=== PATIENT | female | born 1980 | race American Indian/Alaskan Native ===

== ENCOUNTER 2020-01-29 19:20 | Emergency (ER) | payer MEDICAID ==
[2020-01-29 19:59] LABS: Basophils # (Auto) 0.1 K/mm3 (0.0-0.1); Basophils % (Auto) 0.7 % (0.0-1.8); Eosinophils # (Auto) 0.2 K/mm3 (0.0-0.4); Eosinophils % (Auto) 1.7 % (0.0-4.3); Hematocrit 39.6 % (30.3-42.9); Hemoglobin 13.4 gm/dl (10.1-14.3); Lymphocytes # (Auto) 2.4 K/mm3 (1.2-5.4); Lymphocytes % (Auto) 20.7 % (13.4-35.0); Mean Corpuscular HGB Conc 34 % (30-34); Mean Corpuscular Volume 90 fl (79-97); Monocytes # (Auto) 0.7 K/mm3 (0.0-0.8); Monocytes % (Auto) 5.9 % (0.0-7.3); Platelet Count 323 K/mm3 (140-440); Red Blood Count 4.42 M/mm3 (3.65-5.03); Red Cell Distribution Width 15.3 % (13.2-15.2)
[2020-01-29] MEDS ORDERED: LORazepam 1 MG TAB PO ONE (20:00)
[2020-01-29] MEDS ORDERED: BACITRACIN ZINC OINT 28.4 GM TP ONE (20:01)
[2020-01-29] MEDS ORDERED: diphenhydrAMINE 50 MG/ML VIAL IM PRN (20:03)
[2020-01-29] MEDS ORDERED: HALOPERIDOL LACTATE 5 MG/1 ML INJ IM PRN (20:03)
--- NOTE | 2020-01-29 20:04 | Emergency Department Report ---
HPI - General Chief Complaint: Psych Time Seen by Provider: 01/29/20 19:53 - HPI HPI: Room 13 The patient is a 39-year-old female present with a chief complaint of suicidal ideation. Patient states she "was not feeling like" herself. Patient states fo r the past 2 days she is felt suicidal. Patient states she is been without her psychiatric meds x1 week. Patient denies any active attempts at harming herself but states her plan was to go to [place] and jump in the ocean and so went back to [place]. The patient states she had a chronic scar on her face from childhood that she attempted to scratch off 2 days ago using her fingernail. Patient has scabs to her lower face ED Past Medical Hx - Past Medical History Hx Psychiatric Treatment: Yes (depression) - Surgical History Additional Surgical History: c sect - Family History Family history: no significant - Social History Smoking Status: Current Every Day Smoker (1/3 pack/day) Substance Use Type: Marijuana ED Review of Systems ROS: Stated complaint: MH EVALUATION Other details as noted in HPI Constitutional: no symptoms reported Respiratory: no symptoms reported Endocrine: no symptoms reported Psychiatric: suicidal thoughts, other (Hyperverbal) Physical Exam - Physical Exam Vital Signs: Vital Signs 01/29/20 19:38 Temperature 98.5 F Pulse Rate 99 H Respiratory 18 Rate Blood Pressure 131/72 [Left] O2 Sat by Pulse 96 Oximetry Physical Exam: GENERAL: The patient is well-developed well-nourished female sitting on chair appearing hyperverbal. [] HEENT: Normocephalic. Atraumatic. Evidence of recent scratch domínguez to both sides of her chin with scab formation. No bleeding. Patient has moist mucous membranes. NECK: Supple. Trachea midline CHEST/LUNGS: Clear to auscultation. There is no respiratory distress noted. HEART/CARDIOVASCULAR: Regular. There is no tachycardia. There is no gallop rub or murmur. ABDOMEN: Abdomen is soft, nontender. Patient has normal bowel sounds. There is no abdominal distention. SKIN: There is no rash. There is no edema. There is no diaphoresis. NEURO: The patient is awake, alert, and oriented but hyperverbal. The patient is cooperative. The patient has no focal neurologic deficits. The patient has pressured speech MUSCULOSKELETAL: There is no evidence of acute injury. ED Course Vital Signs 01/29/20 19:38 Temperature 98.5 F Pulse Rate 99 H Respiratory 18 Rate Blood Pressure 131/72 [Left] O2 Sat by Pulse 96 Oximetry ED Medical Decision Making - Lab Data Result diagrams: 01/29/20 19:46 01/29/20 19:46 Laboratory Tests 01/29/20 01/29/20 01/29/20 19:46 19:46 19:46 WBC RBC Hgb Hct MCV MCH MCHC RDW Plt Count Lymph % (Auto) [place] % (Auto) Eos % (Auto) Baso % (Auto) Lymph # (Auto) [place] # (Auto) Eos # (Auto) Baso # (Auto) Seg Neutrophils % Seg Neutrophils # Sodium 138 Potassium 4.4 Chloride 105.7 Carbon Dioxide 24 Anion Gap 13 BUN 9 Creatinine 0.6 Estimated GFR > 60 BUN/Creatinine Ratio 15 Glucose 236 H Calcium 9.2 Urine Color Urine Turbidity Urine pH Ur Specific [place] Urine Protein Urine Glucose (UA) Urine Ketones Urine Blood Urine Nitrite Urine Bilirubin Urine Urobilinogen Ur Leukocyte Esterase Urine WBC (Auto) Urine RBC (Auto) U Epithel Cells (Auto) Urine Bacteria (Auto) Urine Mucus Urine Yeast (Budding) Salicylates < 0.3 L Urine Opiates Screen Urine Methadone Screen Acetaminophen 5.0 L Ur Barbiturates Screen Ur Phencyclidine Scrn Ur Amphetamines Screen U Benzodiazepines Scrn Urine Cocaine Screen U Marijuana (THC) Screen Drugs of Abuse Note Plasma/Serum Alcohol 01/29/20 01/29/20 01/29/20 19:46 19:46 Unknown WBC 11.6 H RBC 4.42 Hgb 13.4 Hct 39.6 MCV 90 MCH 30 MCHC 34 RDW 15.3 H Plt Count 323 Lymph % (Auto) 20.7 [place] % (Auto) 5.9 Eos % (Auto) 1.7 Baso % (Auto) 0.7 Lymph # (Auto) 2.4 [place] # (Auto) 0.7 Eos # (Auto) 0.2 Baso # (Auto) 0.1 Seg Neutrophils % 71.0 H Seg Neutrophils # 8.2 H Sodium Potassium Chloride Carbon Dioxide Anion Gap BUN Creatinine Estimated GFR BUN/Creatinine Ratio Glucose Calcium Urine Color Susana Urine Turbidity Slightly-cloudy Urine pH 6.0 Ur Specific [place] 1.029 Urine Protein 100 mg/dl Urine Glucose (UA) Neg Urine Ketones Tr Urine Blood Neg Urine Nitrite Neg Urine Bilirubin Neg Urine Urobilinogen 4.0 Ur Leukocyte Esterase Mod Urine WBC (Auto) 5.0 Urine RBC (Auto) 11.0 U Epithel Cells (Auto) 36.0 H Urine Bacteria (Auto) 1+ Urine Mucus 3+ Urine Yeast (Budding) Few Salicylates Urine Opiates Screen Urine Methadone Screen Acetaminophen Ur Barbiturates Screen Ur Phencyclidine Scrn Ur Amphetamines Screen U Benzodiazepines Scrn Urine Cocaine Screen U Marijuana (THC) Screen Drugs of Abuse Note Plasma/Serum Alcohol < 0.01 01/29/20 Unknown WBC RBC Hgb Hct MCV MCH MCHC RDW Plt Count Lymph % (Auto) [place] % (Auto) Eos % (Auto) Baso % (Auto) Lymph # (Auto) [place] # (Auto) Eos # (Auto) Baso # (Auto) Seg Neutrophils % Seg Neutrophils # Sodium Potassium Chloride Carbon Dioxide Anion Gap BUN Creatinine Estimated GFR BUN/Creatinine Ratio Glucose Calcium Urine Color Urine Turbidity Urine pH Ur Specific [place] Urine Protein Urine Glucose (UA) Urine Ketones Urine Blood Urine Nitrite Urine Bilirubin Urine Urobilinogen Ur Leukocyte Esterase Urine WBC (Auto) Urine RBC (Auto) U Epithel Cells (Auto) Urine Bacteria (Auto) Urine Mucus Urine Yeast (Budding) Salicylates Urine Opiates Screen Presumptive negative Urine Methadone Screen Presumptive negative Acetaminophen Ur Barbiturates Screen Presumptive negative Ur Phencyclidine Scrn Presumptive negative Ur Amphetamines Screen Presumptive negative U Benzodiazepines Scrn Presumptive negative Urine Cocaine Screen Presumptive positive U Marijuana (THC) Screen Presumptive positive Drugs of Abuse Note Disclamer Plasma/Serum Alcohol - Differential Diagnosis Suicidal ideation, Critical care attestation.: If time is entered above; I have spent that time in minutes in the direct care of this critically ill patient, excluding procedure time. ED Disposition Clinical Impression: Suicidal ideation, Polysubstance abuse Disposition: DC/TX-65 PSY HOSP/PSY UNIT Is pt being admited?: No Does the pt Need Aspirin: No Condition: Stable Time of Disposition: 21:27 (Awaiting acceptance)
[2020-01-29] MEDS: LORazepam 2 MG/ML VIAL IM PRN (20:10)
[2020-01-29 20:21] LABS: Blood Urea Nitrogen 9 mg/dL (7-17); Calcium 9.2 mg/dL (8.4-10.2); Hemolysis Index 10
[2020-01-29 20:30] LABS: BUN/Creatinine Ratio 15
[2020-01-29 20:59] LABS: Bacteria,Urine 1+ /HPF (Negative); Bilirubin,Urine NEG (Negative); Blood,Urine NEG (Negative); Color,Urine Amber (Yellow); Mucus,Urine 3+ /HPF
[2020-01-29 21:06] LABS: Amphetamine Screen,Urine PRESUMPTIVE NEGATIVE; Benzodiazepines Screen,Urine PRESUMPTIVE NEGATIVE; Cannabinoid Screen,Urine PRESUMPTIVE POSITIVE; Cocaine Screen,Urine PRESUMPTIVE POSITIVE; Methadone Screen,Urine PRESUMPTIVE NEGATIVE; Opiate Screen,Urine PRESUMPTIVE NEGATIVE
--- NOTE | 2020-01-30 09:19 | Consultation ---
History of Present Illness - Reason for Consult Consult date: 01/30/20 Reason for consult: MHE Requesting physician: BELLE NICOLE - History of Present Psychiatric Illness Per ED Provider: patient is a 39-year-old female present with a chief complaint of suicidal ideation. Patient states she "was not feeling like" herself. Patient states for the past 2 days she is felt suicidal. Patient states she is been without her psychiatric meds x1 week. Patient denies any active attempts at harming herself but states her plan was to go to [place] and jump in the ocean and so went back to [place]. The patient states she had a chronic scar on her face from childhood that she attempted to scratch off 2 days ago using her fingernail. Patient has scabs to her lower face PER MHA: Pt. is a 39 y/o female who presents to ED for a MHE. Per records, pts Chief complaint is suicidal ideation with plan to go to [place] and jump in the ocean and go back to [place]. Pt reports that she has been out of her psychiatric medications for one week. Pt. presents with a chronic scar on her face and scabs to her lower face from childhood that she attempted to scratch off 2 days ago using her fingernail. Satellite Manager observed that the scar has been picked at. During current ax, pt presents with irritable mood, incongruent affect, and tangential thinking. She presents as being hyperverbal w/ pressured speech. She continued to have loud outburst and was difficult to redirect. Demanding sandwiches, medications, etc. She continued to pace the hallway and fidget during encounter. Reports auditory hallucinations since I was born. Voices tell pt. to pick at scar on face. Unable to elaborate additionally on voices. According to pt, her psych hx consists of schizophrenia and depression. Denies current psych provider or treatment in [place]. Pt has received inpatient psychiatric treatment in [place]. Unable to report reason for admission or time. Pt. reports being from [place] and moving to [place] one month ago to hang out and sight see. Denies family in [place]. Pt. is hyper focused on seeing a new social work therapist to retrieve a new VISA card. Pt receives Social Security Disability. Amount unknown at this time. Pt. is paranoid and unwilling to provide information related to previous whereabouts and income. Pt has a [facility] payee. Payee paid housing up until Wednesday. Later pt. indicated that she was living a fdc and no longer want to live in an apartment. (name and number unknown) PSYCH HPI Patient is a 39 year old single without children, unemployed on disability 39 year old Female who resides in a fdc with past psychiatric history of MDD, and Schziophrenia and no significant past medical history who presents to the ED with complaints of SI. Patient reports she had called 911 herself because she didnt like where was at, had lost her visa master card where her money gets deposited into and needed help to see social work therapist here and to get back to [facility]. Patient says her main issue is social, is not suicidal and would like to see a social work therapist. Patient says she also does not like her current home and does not wish to go back there and does not know her psych medications and she is on Latuda too. PAST PSYCHIATRIC HISTORY Diagnoses: MDD, and Schziophrenia Suicide attempts or Self-harm behavior: Yes Prior psychiatric hospitalizations: Yes Substance Abuse history: Marianela Previous psychiatric medications tried: Yes Outpatient treatment: non compliant PAST MEDICAL HISTORY: unable to recall Family Psychiatric History: None reported or documented SOCIAL HISTORY Marital Status: Single Living Arrangements:FDC Employment Status: Disabled mentally Access to guns/weapons: none Education: College degree per patient History of Abuse: none reported Legal History: REVIEW OF SYSTEMS Constitutional: Negative for weight loss ENT: Negative for stridor Respiratory: Negative for cough or hemoptysis All other systems reviewed and are negative MENTAL STATUS EXAMINATION General Appearance and Behavior: Age appropriate, fair hygiene, wearing appropriate clothes, lying in bed, good eye contact, cooperative politewith questioning. Cooperation: Participating/engaged Psychomotor Behavior: unremarkable and within normal limits Mood: just fine Affect and affective range: congruent with mood Thought Process: Fluent/Logica Thought Content: Poverty, Obsessions Speech: Normal volume, Regular rate and rhythm Intellectual Functioning: Average Suicidal Ideation: Denies SI Homicidal Ideation: Denies HI Impulse Control:Unimpaired Insight and Judgment: NLimited insight and judgment Memory: long term acute care registered nurse memory impaired, Attention: d Divided attention impaired Orientation: Alert, oriented Diagnoses: Assessment and Plan - Psychiatric problem (1) Cocaine use disorder Current Visit: Yes Status: Acute (2) Polysubstance abuse Current Visit: Yes Status: Acute Treatment Plan Patient was positive for cocaine use even though she denie illicit drug use, she also expressed to seek social work therapist for her current situation. MEDICATIONS: Risks, benefits and alternatives of medications discussed with the patient, questions answered and consent obtained from patient. PSYCHOTHERAPY: Supportive psychotherapy provided MEDICAL: Per primary team DELIRIUM PRECAUTIONS: Please re-orient patient frequently, keep lights on during the day, and minimize benzodiazepines and opiates as these medications could worsen patient's confusion. ROUTE SALESMAN AND DRIVER: DISPOSITION: Do Not Recommend acute inpatient psychiatric hospitalization at this time. Will refer to case management LEGAL STATUS: [id number] rescinded FOLLOW-UP: Will follow Thank you for the consult. Please contact with any questions and/or concerns. Medications and Allergies Allergies Allergy/AdvReac Type Severity Reaction Status Date / Time No Known Allergies Allergy Unverified 01/29/20 19:34 Active Meds: Active Medications Diphenhydramine HCl (Benadryl) 50 mg IM Q6H PRN PRN Reason: Agitation Last Admin: 01/29/20 20:09 Dose: 50 mg Documented by: Haloperidol Lactate (Haldol) 10 mg IM Q8H PRN PRN Reason: Agitation Last Admin: 01/29/20 20:10 Dose: 10 mg Documented by: Lorazepam (Ativan) 2 mg IM Q8H PRN PRN Reason: Agitation Last Admin: 01/29/20 20:10 Dose: 2 mg Documented by: Mental Status Exam - Vital signs Last Vital Signs Temp 97.8 F 01/30/20 08:50 Pulse 78 01/30/20 08:50 Resp 18 01/30/20 08:50 BP 120/46 01/30/20 08:50 Pulse Ox 96 01/30/20 08:50 Results Result Diagrams: 01/29/20 19:46 01/29/20 19:46 Abnormal lab results 01/29/20 01/29/20 01/29/20 Range/Units 19:46 19:46 19:46 WBC (4.5-11.0) K/mm3 RDW (13.2-15.2) % Seg Neutrophils % (40.0-70.0) % Seg Neutrophils # (1.8-7.7) K/mm3 Glucose 236 H (65-100) mg/dL U Epithel Cells (Auto) (0-13.0) /HPF Salicylates < 0.3 L (2.8-20.0) mg/dL Acetaminophen 5.0 L (10.0-30.0) ug/mL 01/29/20 01/29/20 Range/Units 19:46 Unknown WBC 11.6 H (4.5-11.0) K/mm3 RDW 15.3 H (13.2-15.2) % Seg Neutrophils % 71.0 H (40.0-70.0) % Seg Neutrophils # 8.2 H (1.8-7.7) K/mm3 Glucose (65-100) mg/dL U Epithel Cells (Auto) 36.0 H (0-13.0) /HPF Salicylates (2.8-20.0) mg/dL Acetaminophen (10.0-30.0) ug/mL All other labs normal. Assessment and Plan - Psychiatric problem (1) Cocaine use disorder Current Visit: Yes Status: Acute (2) Polysubstance abuse Current Visit: Yes Status: Acute
[2020-01-30] MEDS: LORazepam 2 MG/ML VIAL IM PRN (21:38)
[2020-01-31] MEDS ORDERED: NEOMY 3.5 MG/BACIT 400 UNITS/POLY B 5000 UNITS/GM OINT PACKET TP ONE ×2 (13:32→13:33)
[2020-02-01 08:24] VITALS: BP 129/65
== END 2020-02-01 16:47 | disposition home or self-care (01) ==
LOC: ED 19:20
DX: F19.10 Other psychoactive substance abuse, uncomplicated (principal); R45.851 Suicidal ideations; F32.9 Major depressive disorder, single episode, unspecified; F17.200 Nicotine dependence, unspecified, uncomplicated; F12.90 Cannabis use, unspecified, uncomplicated; Z98.890 Other specified postprocedural states
CPT/HCPCS: 36415; 80048; 80307; 81001; 85025; 96372; 99284; J1200; J1630; J2060; 80320; A6250; G0480

== ENCOUNTER 2020-02-17 06:49 | Emergency (ER) | payer MEDICAID ==
[2020-02-17 07:15] VITALS: BP 145/63
[2020-02-17] MEDS ORDERED: diphenhydrAMINE 50 MG/ML VIAL IM ONE (09:31)
[2020-02-17] MEDS ORDERED: methylPREDNISolone Sod Succinate 125 MG/2 ML INJ IM ONE (09:32)
[2020-02-17] MEDS ORDERED: FAMOTIDINE 20 MG TAB PO ONE (09:32)
--- NOTE | 2020-02-17 09:35 | Emergency Department Report ---
HPI - General Chief Complaint: Allergic Reaction Time Seen by Provider: 02/17/20 09:29 - HPI HPI: 39-year-old female reports to the emergency room complaining of hives and itching x2 days she was seen she reports being seen at [facility] 2 days ago but was not able to fill her prescription. She states she is homeless and new to [place] so she has not filled any prescription and the itching and hives just continues the cause of her itching is unknown. Patient states she has found a family member her father in [place] and she will be going there today via bus she reports a history of schizophrenia and depression she has not been able to take any of her medicines she currently denies any suicidal ideation ED Past Medical Hx - Past Medical History Previous Medical History?: Yes Hx Psychiatric Treatment: Yes (depression, Schizophrenia, Homeless) - Surgical History Past Surgical History?: Yes Additional Surgical History: c sect - Social History Smoking Status: Current Every Day Smoker Substance Use Type: Prescribed - Medications Home Medications: Home Medications Medication Instructions Recorded Confirmed Last Taken Type Famotidine [Pepcid] 40 mg PO DAILY #5 tablet 02/17/20 Unknown Rx diphenhydrAMINE [Benadryl CAP] 25 mg PO Q6HR PRN #20 capsule 02/17/20 Unknown Rx predniSONE [Deltasone] 40 mg PO QDAY 3 Days #6 tab 02/17/20 Unknown Rx ED Review of Systems ROS: Stated complaint: DIARRHEA,HIVES Other details as noted in HPI Constitutional: no symptoms reported. denies: chills, fever, weakness, other ENT: denies: ear pain, dental pain, hearing loss, epistaxis Respiratory: denies: no symptoms reported, cough, SOB with exertion, SOB at rest Endocrine: denies: flushing, increased hunger, increased thirst, increased urine, unexplained weight gain Gastrointestinal: denies: nausea, vomiting Skin: rash, pruritus Neurological: denies: headache, weakness, paresthesias, abnormal gait, vertigo Psychiatric: denies: anxiety, depression, auditory hallucinations, suicidal thoughts Physical Exam - Physical Exam Vital Signs: Vital Signs 02/17/20 07:12 Temperature 98.8 F Pulse Rate 95 H Respiratory 20 Rate Blood Pressure 145/63 O2 Sat by Pulse 97 Oximetry General: 39-year-old female she has generalized rash to her trunk past her back abdomen and legs. Erythemic round t[place] she has no facial swelling no tongue swelling no lip swelling lungs are clear respirations easy and unlabored her she does have positive body odor and unkempt Physical Exam: Patient obese female awake alert and oriented respiration easy and unlabored lungs clear no facial swelling no past anterior pharyngeal swelling no tongue swelling no lip swelling. Pt she is unkempt with positive body odor has erythremic rash to her back chest abdomen and thighs. ED Course Vital Signs 02/17/20 07:12 Temperature 98.8 F Pulse Rate 95 H Respiratory 20 Rate Blood Pressure 145/63 O2 Sat by Pulse 97 Oximetry Critical care attestation.: If time is entered above; I have spent that time in minutes in the direct care of this critically ill patient, excluding procedure time. ED Disposition Clinical Impression: Allergic reaction Qualifiers: Encounter type: sequela Qualified Code(s): T78.40XS - Allergy, unspecified, s equela Disposition: DC-01 TO HOME OR SELFCARE Is pt being admited?: No Does the pt Need Aspirin: No Condition: Stable Instructions: Allergies (ED) Additional Instructions: Take medications as prescribed. Return to the emergency room if you develop any shortness of breath tightness in your throat unable to swallow Prescriptions: diphenhydrAMINE [Benadryl CAP] 25 mg PO Q6HR PRN #20 capsule PRN Reason: Itching predniSONE [Deltasone] 40 mg PO QDAY 3 Days #6 tab Famotidine [Pepcid] 40 mg PO DAILY #5 tablet Referrals: PRIMARY CARE, [Primary Care Provider] - 3-5 Days Time of Disposition: 12:47
== END 2020-02-17 13:03 | disposition home or self-care (01) ==
LOC: ED 06:49
DX: T78.40XS Allergy, unspecified, sequela (principal); F20.89 Other schizophrenia; F32.89 Other specified depressive episodes; F17.200 Nicotine dependence, unspecified, uncomplicated; Z98.890 Other specified postprocedural states; Y92.89 Other specified places as the place of occurrence of the external cause
CPT/HCPCS: 96372; 99283; J1200; J2930; 36415; 80048; 80307; 80320; 81001; 82962; 84703; 85025; G0480

== ENCOUNTER 2020-02-17 20:01 | Emergency (ER) | payer MEDICAID ==
[2020-02-18 03:12] LABS: Bacteria,Urine 1+ /HPF (Negative); Bilirubin,Urine NEG (Negative); Blood,Urine MOD (Negative); Color,Urine Yellow (Yellow); Mucus,Urine FEW /HPF; Protein,Urine <15 mg/dL mg/dL (Negative); Urobilinogen,Urine < 2.0 mg/dL (<2.0)
[2020-02-18 03:17] LABS: Amphetamine Screen,Urine PRESUMPTIVE NEGATIVE; Benzodiazepines Screen,Urine PRESUMPTIVE NEGATIVE; Cannabinoid Screen,Urine PRESUMPTIVE NEGATIVE; Cocaine Screen,Urine PRESUMPTIVE NEGATIVE; Methadone Screen,Urine PRESUMPTIVE NEGATIVE; Opiate Screen,Urine PRESUMPTIVE NEGATIVE
[2020-02-18 03:38] LABS: Hematocrit 34.6 % (30.3-42.9); Hemoglobin 12.1 gm/dl (10.1-14.3); Lymphocytes # (Auto) 0.9 K/mm3 (1.2-5.4); Lymphocytes % (Auto) 6.5 % (13.4-35.0); Mean Corpuscular HGB Conc 35 % (30-34); Mean Corpuscular Volume 88 fl (79-97); Monocytes # (Auto) 0.6 K/mm3 (0.0-0.8); Monocytes % (Auto) 4.6 % (0.0-7.3); Platelet Count 332 K/mm3 (140-440); Red Blood Count 3.94 M/mm3 (3.65-5.03); Red Cell Distribution Width 15.5 % (13.2-15.2)
[2020-02-18 03:40] LABS: Blood Urea Nitrogen 9 mg/dL (7-17); Calcium 9.5 mg/dL (8.4-10.2); Hemolysis Index 1
[2020-02-18 03:44] LABS: BUN/Creatinine Ratio 15
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
--- NOTE | 2020-02-19 10:18 | Consultation ---
History of Present Illness - Reason for Consult Consult date: 02/19/20 Reason for consult: SI - History of Present Psychiatric Illness The patient's medical record was reviewed and the patient's progress was discussed with the nursing staff. Komal Stern is a 39y/o female patient who states she presented to the ER for suicidal thoughts. The patient is a/o x 3. She is calm and cooperative. She says "I'm not doing too well. I'm suicidal." The patient states "I'm a little depressed because I've been off my meds." She says, "I haven't had them in 2 months." She then says "I just need to be back on my meds and I'll be fine." The patient says she's from [place] and haven't seen a psychiatrist since she left. She says she usually takes "latuda, but can take invega sustenna too." The patient says she was diagnosed with schizophrenia. She says she's homeless "by choice." She says "I don't want to live with my brother and deal with all the prostitution and drugs." The patient denies hallucinations of any kind. She also denies any illicit drug use, or alcohol. She says she smokes about "10 cigarettes a day." She denies needing a nicotine patch. PAST PSYCHIATRIC HISTORY: Diagnoses: Schizophrenia Suicide attempts or Self-harm behavior: Denies Prior psychiatric hospitalizations: Yes Substance Abuse history: Denies Previous psychiatric medications tried: Latuda, Invega Outpatient treatment: Not in about 2 months PAST MEDICAL HISTORY: None reported Family Psychiatric History: None reported or documented SOCIAL HISTORY Marital Status: Single Living Arrangements: Homeless Employment Status: Unemployed Access to guns/weapons: None reported Education: History of Abuse: None reported Legal History: None reported REVIEW OF SYSTEMS Constitutional: Negative for weight loss ENT: Negative for stridor Respiratory: Negative for cough or hemoptysis All other systems reviewed and are negative MENTAL STATUS EXAMINATION General Appearance: Dressed appropriately Behavior: fair eye contact, calm and cooperative Cooperation: Participating/engaged Psychomotor Behavior: Psychomotor normal Mood: "a little depressed" Affect and affective range: congruent with mood Thought Process: goal oriented Thought Content: within reality Speech: Normal rate, volume and rhythm Suicidal Ideation: Yes Homicidal Ideation: Denies HI Hallucinations: Auditory Delusions: None elicited Impulse Control: unimpaired Insight and Judgment: Limited insight and judgment Memory: Normal Attention: Normal Orientation: Alert, oriented Assessment and Plan (1) Schizophrenia (2) Noncompliant with medical regimen and other treatment TREATMENT 1013 Invega 3mg po daily Trazodone 50mg po qhs Melatonin 5mg po qhs prn insomnia Sitter: Defer to primary Medical: Per primary Disposition: Recommend acute inpatient treatment Will follow. Thank you for this consult Medications and Allergies Allergies Allergy/AdvReac Type Severity Reaction Status Date / Time No Known Allergies Allergy Unverified 01/31/20 09:57 Home Medications Medication Instructions Recorded Confirmed Last Taken Type Famotidine [Pepcid] 40 mg PO DAILY #5 tablet 02/17/20 Unknown Rx diphenhydrAMINE [Benadryl CAP] 25 mg PO Q6HR PRN #20 capsule 02/17/20 Unknown Rx predniSONE [Deltasone] 40 mg PO QDAY 3 Days #6 tab 02/17/20 Unknown Rx Mental Status Exam - Vital signs Last Vital Signs Temp 98.1 F 02/19/20 08:57 Pulse 79 02/19/20 08:57 Resp 18 02/19/20 09:02 BP 130/67 02/19/20 08:57 Pulse Ox 97 02/19/20 09:02 Results Result Diagrams: 02/18/20 03:07 02/18/20 03:07 All other labs normal.
[2020-02-19] MEDS ORDERED: PALIPERIDONE ER 3 MG TAB PO SCH (11:00)
[2020-02-19 20:25] VITALS: BP 138/83
[2020-02-19] MEDS ORDERED: traZODone 50 MG TAB PO SCH (22:00)
[2020-02-19] MEDS ORDERED: MELATONIN 5 MG TAB PO PRN (22:00)
== END 2020-02-19 22:52 | disposition other institution (70) ==
LOC: ED 20:01 → EEVIPCON 20:01 → ED 02-19 22:52
DX: F20.9 Schizophrenia, unspecified (principal); F32.9 Major depressive disorder, single episode, unspecified; F17.200 Nicotine dependence, unspecified, uncomplicated; Z79.899 Other long term (current) drug therapy
CPT/HCPCS: 36415; 80048; 80307; 80320; 81001; 82962; 84703; 85025; G0480

== ENCOUNTER 2020-03-06 22:24 | Emergency (ER) | payer MEDICAID ==
[2020-03-07 02:11] LABS: Bilirubin,Urine NEG (Negative); Blood,Urine NEG (Negative); Color,Urine Yellow (Yellow); Protein,Urine <15 mg/dL mg/dL (Negative); Urobilinogen,Urine < 2.0 mg/dL (<2.0)
[2020-03-07 02:23] LABS: Amphetamine Screen,Urine Negative; Benzodiazepines Screen,Urine Negative; Cannabinoid Screen,Urine Negative; Cocaine Screen,Urine Negative; Methadone Screen,Urine Negative; Opiate Screen,Urine Negative
[2020-03-07 02:33] LABS: Basophils % (Auto) 0.4 % (0.0-1.8); Eosinophils # (Auto) 0.1 K/mm3 (0.0-0.4); Eosinophils % (Auto) 1.2 % (0.0-4.3); Hematocrit 40.1 % (30.3-42.9); Hemoglobin 13.7 gm/dl (10.1-14.3); Lymphocytes # (Auto) 2.2 K/mm3 (1.2-5.4); Lymphocytes % (Auto) 35.7 % (13.4-35.0); Mean Corpuscular HGB Conc 34 % (30-34); Mean Corpuscular Volume 88 fl (79-97); Monocytes # (Auto) 0.7 K/mm3 (0.0-0.8); Monocytes % (Auto) 12.3 % (0.0-7.3); Platelet Count 322 K/mm3 (140-440); Red Blood Count 4.56 M/mm3 (3.65-5.03); Red Cell Distribution Width 16.7 % (13.2-15.2)
[2020-03-07 02:38] LABS: BUN/Creatinine Ratio 18; Blood Urea Nitrogen 16 mg/dL (7-17); Calcium 9.2 mg/dL (8.4-10.2); Hemolysis Index 5
--- NOTE | 2020-03-07 04:04 | Emergency Department Report ---
ED Psych HPI - General Chief Complaint: Psych Stated Complaint: PSYCH Time Seen by Provider: 03/07/20 03:41 Source: patient Mode of arrival: Ambulatory Limitations: No Limitations - History of Present Illness Initial Comments: Patient is a 39-year-old female that presents emergency room with complaints of suicidal ideations. Patient states her plan is to overdose on her insulin. Patient is depressed because she cannot find her money. Patient denies homicidal ideations. Patient denies hallucinations. Patient states her symptoms are worsening. Patient denies fever and chills. Patient denies physical complaints. Patient denies recent travel. Patient denies recent international travel. Patient denies exposure to the novel coronavirus. Patient denies sick contacts. Patient denies fever and chills. Patient denies cough. Patient denies diarrhea. Patient denies coming in contact with anybody with symptoms of the novel coronavirus. MD Complaint: suicidal ideation, feels depressed -: Sudden Associated Psychiatric Symptoms: depression, suicidal ideation History of same: Yes Quality: constant Improves With: none Worsens With: none Context: significant life stressor Associated Symptoms: denies: confusion, headache, shortness of breath, nausea, vomiting, syncope, insomnia If Self Harm: admits thoughts of, has plan - Related Data Previous Rx's Medication Instructions Recorded Last Taken Type Famotidine [Pepcid] 40 mg PO DAILY #5 tablet 02/17/20 Unknown Rx diphenhydrAMINE [Benadryl CAP] 25 mg PO Q6HR PRN #20 capsule 02/17/20 Unknown Rx predniSONE [Deltasone] 40 mg PO QDAY 3 Days #6 tab 02/17/20 Unknown Rx Sulfamethoxazole/Trimethoprim 1 each PO BID 10 Days #20 tablet 03/07/20 Unknown Rx [Bactrim DS TAB] Allergies Allergy/AdvReac Type Severity Reaction Status Date / Time No Known Allergies Allergy Unverified 01/31/20 09:57 ED Review of Systems ROS: Stated complaint: PSYCH Other details as noted in HPI Constitutional: denies: chills, fever Eyes: denies: eye pain, eye discharge, vision change ENT: denies: ear pain, throat pain Respiratory: denies: cough, shortness of breath, wheezing Cardiovascular: denies: chest pain, palpitations Endocrine: no symptoms reported Gastrointestinal: denies: abdominal pain, nausea, diarrhea Genitourinary: denies: urgency, dysuria, discharge Musculoskeletal: denies: back pain, joint swelling, arthralgia Skin: denies: rash, lesions Neurological: denies: headache, weakness, paresthesias Psychiatric: depression, suicidal thoughts. denies: anxiety, auditory hallucinations, homicidal thoughts Hematological/Lymphatic: denies: easy bleeding, easy bruising ED Past Medical Hx - Past Medical History Previous Medical History?: Yes Hx Psychiatric Treatment: Yes (depression, Schizophrenia, Homeless) - Surgical History Past Surgical History?: Yes Additional Surgical History: c sect - Family History Family history: no significant - Social History Smoking Status: Current Every Day Smoker Substance Use Type: None - Medications Home Medications: Home Medications Medication Instructions Recorded Confirmed Last Taken Type Famotidine [Pepcid] 40 mg PO DAILY #5 tablet 02/17/20 Unknown Rx diphenhydrAMINE [Benadryl CAP] 25 mg PO Q6HR PRN #20 capsule 02/17/20 Unknown Rx predniSONE [Deltasone] 40 mg PO QDAY 3 Days #6 tab 02/17/20 Unknown Rx Sulfamethoxazole/Trimethoprim 1 each PO BID 10 Days #20 tablet 03/07/20 Unknown Rx [Bactrim DS TAB] ED Physical Exam - General Limitations: No Limitations General appearance: alert, in no apparent distress - Head Head exam: Present: atraumatic, normocephalic - Eye Eye exam: Present: normal appearance - ENT ENT exam: Present: mucous membranes moist - Neck Neck exam: Present: normal inspection - Respiratory Respiratory exam: Present: normal lung sounds bilaterally. Absent: respiratory distress - Cardiovascular Cardiovascular Exam: Present: regular rate, normal rhythm. Absent: systolic murmur, diastolic murmur, rubs, gallop - GI/Abdominal GI/Abdominal exam: Present: soft, normal bowel sounds - Extremities Exam Extremities exam: Present: normal inspection - Back Exam Back exam: Present: normal inspection - Neurological Exam Neurological exam: Present: alert, oriented X3 - Psychiatric Psychiatric exam: Present: depressed, flat affect, suicidal ideation - Skin Skin exam: Present: warm, dry, intact, normal color. Absent: rash ED Course - Reevaluation(s) Reevaluation #1: Patient is placed on a ER hold. I discussed all results and clinical findings with patient. I discussed plan of care with patient. Patient agrees with plan of care. Patient is medically cleared. Patient's final disposition will come from our psychiatry team. 03/07/20 04:01 ED Medical Decision Making - Lab Data Result diagrams: 03/07/20 01:59 03/07/20 01:59 - Medical Decision Making Patient is a 39-year-old female that presents emergency room for depression and suicidal ideation. Patient has a plan. Patient placed on a ER hold. Patient had labs done which were essentially unremarkable except for UTI. Patient given oral antibiotics. Patient is medically cleared. Patient's final disposition will come from our psychiatry team. Patient will need to be cleared by our psychiatry team prior to discharge. - Differential Diagnosis Suicidal ideation, depression Critical care attestation.: If time is entered above; I have spent that time in minutes in the direct care of this critically ill patient, excluding procedure time. ED Disposition Clinical Impression: Suicidal ideation Is pt being admited?: No Does the pt Need Aspirin: No Condition: Stable Prescriptions: Sulfamethoxazole/Trimethoprim [Bactrim DS TAB] 1 each PO BID 10 Days #20 tablet Referrals: PRIMARY CARE, [Primary Care Provider] - 3-5 Days Time of Disposition: 04:03
[2020-03-07 07:41] VITALS: BP 111/72
[2020-03-07 10:32] LABS: HCG Qualitative,Urine Negative (Negative)
== END 2020-03-07 13:15 ==
LOC: ED 22:24
DX: R45.851 Suicidal ideations (principal); F32.9 Major depressive disorder, single episode, unspecified; F20.9 Schizophrenia, unspecified; F17.200 Nicotine dependence, unspecified, uncomplicated; Z59.0 Homelessness; Z98.890 Other specified postprocedural states; Z79.899 Other long term (current) drug therapy
CPT/HCPCS: 36415; 80048; 80307; 80320; 81001; 81025; 85025; G0480